=== PATIENT | male | born 1960 | race Caucasian/White ===

== ENCOUNTER 2017-01-16 17:47 | Observation (INO) | payer BC ==
[2017-01-16] MEDS ORDERED: NITROGLYCERIN 0.4 MG TAB SL ONE (17:59)
[2017-01-16] MEDS ORDERED: NITROGLYCERIN 0.4 MG TAB SL PRN (18:00)
[2017-01-16 18:11] LABS: BASOPHILS % (AUTO) 0 % (0-3); EOSINOPHILS % (AUTO) 1 % (0-9); HEMATOCRIT 39 % (39-53); MEAN CORPUSCULAR HGB CONC 34.3 gm/dl (32.0-36.0); MEAN CORPUSCULAR VOLUME 87 fL (80-100); MONOCYTES % (AUTO) 20.9 % (0-12)
[2017-01-16 18:28] LABS: CALCIUM 9.1 mg/dl (8.5-10.1); GLOM FILT RATE 72 mL/min (>60); SODIUM 139 mMol/L (136-145)
[2017-01-16] MEDS ORDERED: IBUPROFEN 600 MG TAB PO ONE (19:05)
[2017-01-16] MEDS ORDERED: IBUPROFEN 600 MG TAB ONE (19:06)
[2017-01-16] MEDS ORDERED: ZOLPIDEM TARTRATE 5 MG TAB PO PRN (19:15)
[2017-01-16] MEDS ORDERED: RIVAROXABAN 10 MG TAB PO ONE ×2 (20:24→20:27)
[2017-01-16] MEDS: PANTOPRAZOLE SODIUM 40 MG ECT PO SCH (20:26)
[2017-01-16] MEDS: FLECAINIDE ACETATE 100 MG PO SCH (20:26)
[2017-01-16] MEDS ORDERED: OMEPRAZOLE 20 MG CAPSULE PO SCH (21:00)
[2017-01-16] MEDS ORDERED: RIVAROXABAN 20 MG TAB PO SCH (21:00)
[2017-01-17 01:10] VITALS: RESP 16
[2017-01-17 08:01] VITALS: BP 109/64; PULSE 78; TEMP 98; O2SAT 96
[2017-01-17] MEDS ORDERED: RIVAROXABAN 20 MG TAB PO SCH (09:00)
[2017-01-17] MEDS: FLECAINIDE ACETATE 100 MG PO SCH (09:02)
[2017-01-17] MEDS: PANTOPRAZOLE SODIUM 40 MG ECT PO SCH (09:02)
[2017-01-17] MEDS ORDERED: FLECAINIDE 100 MG TAB PO SCH (21:00)
== END 2017-01-17 09:25 | disposition home or self-care (01) ==
LOC: ED 17:47 → ACUTE CARE 19:07 → UNDOADMOB 19:07 → ACUTE CARE 19:15
PROVIDERS: ADMIT Family Medicine; ATTEND Family Medicine
DX: R07.89 Other chest pain (principal); Z98.890 Other specified postprocedural states
CPT/HCPCS: 36415; 71010; 80048; 84484; 85025; 93005; 93012; 99284; 99291

== ENCOUNTER 2017-11-13 08:22 | Day surgery (SDC) | payer BC ==
[~2017-11-13 08:22] MED LIST: LIDOCAINE HCL 1% MPF SOL ONE; PROPOFOL 500 MG/50 ML EMU IV ONE
[2017-11-13 10:22] VITALS: O2SAT 96
[2017-11-13 10:58] VITALS: BP 119/74; PULSE 67; RESP 20; TEMP 97
== END 2017-11-13 11:05 | disposition home or self-care (01) ==
LOC: SURG 08:22
PROVIDERS: ATTEND Surgery
DX: Z12.11 Encounter for screening for malignant neoplasm of colon (principal); D36.15 Benign neoplasm of peripheral nerves and autonomic nervous system of abdomen
CPT/HCPCS: 99001; J2001; J2704